=== PATIENT | male | born 1965 | race Caucasian/White ===

== ENCOUNTER 2023-03-06 20:27 | Emergency (ER) | payer BC ==
[~2023-03-06] VITALS: Ht 167.6 cm; Wt 118.2 kg
[2023-03-06 20:34] VITALS: TEMP 99.5
[2023-03-06 22:33] VITALS: BP 164/84; PULSE 76
== END 2023-03-06 22:33 | disposition home or self-care (01) ==
LOC: COL.ER 20:27
DX: U07.1 COVID-19 (principal); R50.9 Fever, unspecified; R09.81 Nasal congestion; M79.10 Myalgia, unspecified site; R05.9 Cough, unspecified; R06.02 Shortness of breath; R51.9 Headache, unspecified